=== PATIENT | female | born 1965 | race Caucasian/White ===

== ENCOUNTER 2016-12-17 11:52 | Observation (INO) | payer OTHER ==
--- NOTE | 2016-12-17 12:15 | CPEKG ---
Heart Rate: 70 RR Interval: 857 P-R Interval: 164 QRSD Interval: 86 QT Interval: 420 QTC Interval: 454 P [place]: 79 QRS [place]: 7 T Wave [place]: 56 EKG Severity - NORMAL ECG - EKG Impression: SINUS RHYTHM Electronically Signed By: Oleksandr Infante 17-Dec-2016 12:15:49
--- NOTE | 2016-12-17 12:23 | EDPHY ---
H & P Stated Complaint: mid back pain, epigastric burning, L neck pain started about 45 min ago Time Seen by Provider: 12/17/16 12:23 HPI/ROS: HPI: This is a 51-year-old female who presents with Chief Complaint: Left shoulder/neck pain Location: Left posterior shoulder/left lateral neck Quality: Pain Duration: 1-2 hours Signs and Symptoms: No shortness of breath, no palpitation, no diaphoresis, + chest heaviness, no fatigue, no nausea, no vomiting Timing: Sudden onset Severity: Moderate Context: Patient it was working at [employer] when she had sudden onset of left posterior shoulder radiating into her left neck pain that she describes as pressure and different from other musculoskeletal complaints. She noted some chest heaviness, cardiac awareness at the time. She became put concerned as she knows that women a typically present with chest pain. She has no prior cardiac history. Denies any family cardiac history. Has an allergy to aspirin and does not take daily. She does admit to increased stress at work. Right- hand dominant. No recent heavy lifting/injury. Modifying Factors: No [id number]-[id number] medications tried Comment: ROS: Constitutional: No fever, no chills, no weight loss Eyes: No blurred vision Respiratory: No shortness of breath, no cough Cardiovascular: No chest pain Gastrointestinal: No nausea, no vomiting no diarrhea Genitourinary: No dysuria Extremities: No myalgias Neurologic: No weakness, no numbness Skin: No rashes Hematologic: No bruising, no bleeding Source: Patient Exam Limitations: No limitations - Personal History LMP (Females 10-55): Pre Menstrual Current Tetanus/Diphtheria Vaccine: Unsure Current Tetanus Diphtheria and Acellular Pertussis (TDAP): Unsure - Medical/Surgical History Hx Asthma: No Hx Chronic Respiratory Disease: No Hx Diabetes: No Hx Cardiac Disease: No Hx Renal Disease: No Hx Cirrhosis: No Hx Alcoholism: No Hx HIV/AIDS: No Hx Splenectomy or Spleen Trauma: No Other PMH: hypoglycemia. gastric bypass - Social History Smoking Status: Never smoked - Physical Exam Exam: CONSTITUTIONAL: Pleasant obese white female, awake and alert, no obvious distress HEENT: Atraumatic and normocephalic, PERRL, EOMI. Tympanic membranes clear. Oropharynx clear, no exudate and moist pink mucosa. Airway patent. No lymphadenopathy. No meningismus. Cardiovascular: Normal S1/S2, regular rate, regular rhythm, without murmur rub or gallop. PULMONARY/CHEST: Symmetrical and nontender. Clear to auscultation bilaterally. Good air movement. No accessory muscle usage. ABDOMEN: Soft, nondistended, nontender, no rebound, no guarding, no peritoneal signs, no masses or organomegaly. No CVAT. EXTREMITIES: 2/2 pulses, no deformities, no clubbing, no cyanosis or edema. NEUROLOGICAL: no focal neuro deficits. GCS 15. SKIN: Warm and dry, no erythema. no rash. Good capillary refill. Constitutional: Initial Vital Signs Temperature (C) 36.5 C 12/17/16 12:01 Heart Rate 67 12/17/16 12:01 Respiratory Rate 16 12/17/16 12:01 Blood Pressure 128/79 H 12/17/16 12:01 O2 Sat (%) 98 12/17/16 12:01 O2 Delivery Mode Room Air Allergies/Adverse Reactions: aspirin Allergy (Verified 12/17/16 12:00) erythromycin base Allergy (Verified 12/17/16 12:01) Home Medications: Medication Instructions Recorded NK [No Known Home Meds] 12/17/16 Medical Decision Making - Diagnostics EKG Interpretation: 12 lead EKG: Indication: Chest pain Rhythm: Normal sinus rhythm, rate of 70 beats per minute Joseph: Normal Intervals: Normal QRS: Normal ST segments: Normal INTERPRETATION: Normal EKG The 12 lead EKG was interpreted by myself. Imaging Results: Imaging Impressions Chest X-Ray 12/17/16 12:29 Impression: Normal chest. ED Course/Re-evaluation: Chest x-ray, labs, EKG ordered Unable to give aspirin due to allergy. Initial EKG does not show any acute ischemic changes per my read and first troponin was unremarkable. She is low risk for pulmonary embolism as no hypoxia/tachycardia/risk factors. Chest x-ray my read via PAC shows no opacity/effusion/pneumothorax SILVERIO risk index= 15; low/intermediate risk with a very good story that is concerning for cardiac disease 1400 ED decision to consult for admission for cardiac rule out, serial cardiac biomarkers and risk stratification. Discussed case with attending who agrees. Spoke with hospitalist, Dr. Joshi, who kindly agrees to admit patient for further care. Differential Diagnosis: Chest pain including but not limited to myocardial ischemia, pulmonary embolus, chest wall pain, pleural inflammation and pulmonary infectious causes. - Data Points Laboratory Results: Laboratory Results 12/17/16 12:15 12/17/16 12:15 12/17/16 12/17/16 12:15 12:15 WBC 5.44 10^3/uL 10^3/uL (3.80-9.50) RBC 4.55 10^6/uL 10^6/uL (4.18-5.33) Hgb 13.4 g/dL g/dL (12.6-16.3) Hct 42.2 % % (38.0-47.0) MCV 92.7 fL fL (81.5-99.8) MCH 29.5 pg pg (27.9-34.1) MCHC 31.8 g/dL L g/dL (32.4-36.7) RDW 14.8 % % (11.5-15.2) Plt Count 337 10^3/uL 10^3/uL (150-400) MPV 9.1 fL fL (8.7-11.7) Neut % (Auto) 53.8 % % (39.3-74.2) Lymph % (Auto) 35.1 % % (15.0-45.0) [place] % (Auto) 8.5 % % (4.5-13.0) Eos % (Auto) 1.7 % % (0.6-7.6) Baso % (Auto) 0.7 % % (0.3-1.7) Nucleat RBC Rel Count 0.0 % % (0.0-0.2) Absolute Neuts (auto) 2.93 10^3/uL 10^3/uL (1.70-6.50) Absolute Lymphs (auto) 1.91 10^3/uL 10^3/uL (1.00-3.00) Absolute Monos (auto) 0.46 10^3/uL 10^3/uL (0.30-0.80) Absolute Eos (auto) 0.09 10^3/uL 10^3/uL (0.03-0.40) Absolute Basos (auto) 0.04 10^3/uL 10^3/uL (0.02-0.10) Absolute Nucleated RBC 0.00 10^3/uL 10^3/uL (0-0.01) Immature Gran % 0.2 % % (0.0-1.1) Immature Gran # 0.01 10^3/uL 10^3/uL (0.00-0.10) Sodium 137 mEq/L mEq/L (134-144) Potassium 3.9 mEq/L mEq/L (3.5-5.2) Chloride 102 mEq/L mEq/L (97-110) Carbon Dioxide 22 mEq/l mEq/l (22-31) Anion Gap 13 mEq/L mEq/L (8-16) BUN 13 mg/dL mg/dL (7-23) Creatinine 0.8 mg/dL mg/dL (0.6-1.0) Estimated GFR > 60 Glucose 111 mg/dL H mg/dL (70-100) Calcium 9.5 mg/dL mg/dL (8.5-10.4) Troponin I < 0.012 ng/mL ng/mL (0.000-0.034) Departure - Departure Disposition: [facility] Inpatient Acute Clinical Impression: Chest pain in adult
[2016-12-17 12:34] LABS: % IMMATURE GRANULYOCYTES 0.2 % (0.0-1.1); ABSOLUTE IMMATURE GRANULOCYTES 0.01 10^3/uL (0.00-0.10); ADD DIFF? NO; ADD MORPH? NO; ADD SCAN? NO; ATYPICAL LYMPHOCYTE FLAG 20 (0-99); FRAGMENT RBC FLAG 0 (0-99); HEMATOCRIT 42.2 % (38.0-47.0); HEMOGLOBIN 13.4 g/dL (12.6-16.3); LEFT SHIFT FLG 0 (0-99); LIPEMIA HEMOLYSIS FLAG 80 (0-99); MEAN CELL HEMOGLOBIN 29.5 pg (27.9-34.1); MEAN CELL HEMOGLOBIN CONCENTR. 31.8 g/dL (32.4-36.7); MEAN CELL VOLUME 92.7 fL (81.5-99.8); MEAN PLATELET VOLUME 9.1 fL (8.7-11.7); PLATELET CLUMPS FLAG 0 (0-99); PLATELET COUNT 337 10^3/uL (150-400); RED BLOOD CELL COUNT 4.55 10^6/uL (4.18-5.33); RED CELL DISTRIBUTION WIDTH 14.8 % (11.5-15.2)
[2016-12-17 13:00] LABS: TROPONIN I < 0.012 ng/mL (0.000-0.034)
[2016-12-17 13:50] LABS: ANION GAP 13 mEq/L (8-16); CALCIUM 9.5 mg/dL (8.5-10.4); CARBON DIOXIDE 22 mEq/l (22-31); CHLORIDE 102 mEq/L (97-110); CREATININE 0.8 mg/dL (0.6-1.0); GLOMERULAR FILTRATION RATE > 60; GLUCOSE 111 mg/dL (70-100); POTASSIUM 3.9 mEq/L (3.5-5.2); SODIUM 137 mEq/L (134-144)
[2016-12-17] MEDS ORDERED: traZODone 50 MG TAB PO PRN (14:26)
[2016-12-17] MEDS ORDERED: ONDANSETRON 4 MG/2 ML VIAL IVP PRN (16:13)
[2016-12-17] MEDS ORDERED: ACETAMINOPHEN 325 MG TAB PO PRN (16:13)
[2016-12-17] MEDS ORDERED: ZOLPIDEM TARTRATE 5 MG TAB PO PRN (16:13)
--- NOTE | 2016-12-17 16:33 | PDGENHP ---
History and Physical History and Physical: CC: Chest discomfort HISTORY: This patient was feeling well until around 11 30 this morning when she was at work and started to experience a pressure and heaviness in the left posterior shoulder left neck and anterior chest. This is associated with diaphoresis but no nausea shortness of breath or palpitations. There is no pleuritic component , no cough, no fevers, no leg pain or swelling. She has no recent travel surgery or immobilization or injury. She has no fever symptoms, no cough, no upper respiratory abnormalities, and otherwise has felt fine. She came into the emergency room for assessment. At this point her symptoms have abated but she still has some minor discomfort. ROS: A comprehensive 10 system review revealed no other significant findings PAST MEDICAL HISTORY: Obesity Status post gastric bypass surgery Insomnia FAMILY MEDICAL HISTORY: No history of cardiac or vascular disease Both parents in their 80s had TIAs SOCIAL HISTORY: Smoked briefly in her early 30s but none since then No significant alcohol Works as a banker MEDICATIONS: The patients list has been reconciled by our clinical pharmacist in the EMR. I have reviewed the list and ordered appropriate medicines. PHYSICAL EXAMINATION: Vital Signs: Stable with no fever Contracting Specialist: Sinus rhythm Examination: General: alert, oriented, good mentation, relaxed Skin: warm, dry, good color, no rash HEENT: normal Neck: no mass or jvd Resps: relaxed Lungs: clear breath sounds Heart: regular, no murmur Abdomen: soft, nondistended, nontender, +BS, no mass Upper Extremities: normal Lower Extremities: no edema, warm No Bleeding or bruising Neurologic: normal speech/language, normal turning lathe tender, no focal weakness IV site: looks normal LABORATORY DATA: 1st troponin is normal, otherwise unremarkable chemistry and CBC RADIOLOGY STUDIES: Chest x-ray done in the ER, my personal interpretation images shows normal chest x-ray 12 LEAD EKG: My personal interpretation of the tracing shows sinus rhythm with normal QRS ST and T-waves no ischemic changes ASSESSMENT: -typical anginal symptoms so far has not shown evidence of myocardial infarction or hemodynamic instability; concern for acute coronary syndrome PLANS: Will observe her here over night with repeat troponins EKG cardiac monitoring hemodynamic monitoring etc, and plan on probable treadmill stress test in the morning If she develops instability or other concerning signs will consider change to angiography or other evaluations as indicated
[2016-12-18] MEDS ORDERED: MULTIVITAMINS 1 EACH TAB PO SCH (09:00)
--- NOTE | 2016-12-18 09:10 | CPEKG ---
Heart Rate: 59 RR Interval: 1017 P-R Interval: 164 QRSD Interval: 82 QT Interval: 432 QTC Interval: 428 P [place]: 79 QRS [place]: 23 T Wave [place]: 60 EKG Severity - NORMAL ECG - EKG Impression: SINUS RHYTHM Electronically Signed By: Sabra Mccormack 18-Dec-2016 16:32:00
--- NOTE | 2016-12-18 12:42 | CPR ---
[f rep st] NONINVASIVE CARDIAC PROCEDURE REPORT DATE OF PROCEDURE: 12/18/2016 PROCEDURE: Exercise treadmill stress test. REASON FOR TEST: 1. Indigestion. 2. Chest discomfort radiating into neck and back. RESULTS: Resting EKG shows a regular sinus rhythm with a rate of 79. No ischemic changes. She is asymptomatic at rest just previous to stress testing. EXERCISE PORTION: She was exercised according to the Camilo protocol for a total of 6 minutes and 50 seconds. She reached a MET level of 7.9, peak blood pressure 150/60, peak heart rate 165. At 2 minutes into the stress test, she did have a 3-beat run of ventricular tachycardia. She remained asymptomatic at that time. The remainder of the stress test was uneventful with regular sinus rhythm and no arrhythmias. RECOVERY: She spontaneously recovered with resting blood pressure 142/60, resting heart rate 89. She remained asymptomatic. Due to the 3-beat run of aberrantly conducted tachycardia and her presenting symptoms, it is recommended to proceed with nuclear stress testing. This will be done this afternoon. She may additionally be asked to wear a Holter monitor to gain more information regarding her rhythm if she continues to experience palpitations. This was discussed with Dr. Dinesh Connors and Dr Shawn Kaur. /[id number]/MODL MTDD
--- NOTE | 2016-12-18 15:56 | ASMTCMCOM ---
CM Note CM Note Notes: 12/18/2016 Case Management Note: Reviewed chart, spoke w/RN. Pt is . No Case Management d/c needs identified d/t pt age and activity levels prior to admissions. No therapy evals ordered. Case Management d/c poc: Home independent w/family support when medically stable. Case Management available if needs change. Date Signed: 12/18/2016 03:55 PM Electronically Signed By:Cathleen Daniels RN
[2016-12-18 16:05] VITALS: BP 108/70; PULSE 72; RESP 15; TEMP 97.8; O2SAT 96
--- NOTE | 2016-12-18 17:08 | ASDISCHSUM ---
Discharge Information Plan Status:Home with No Needs Medically Cleared to Leave: Discharge Date:12/18/2016 05:04 PM CM D/C Disposition:Home, Routine, Self-Care ADT D/C Disposition:Home, Routine, Self-Care Projected Discharge Date:12/18/2016 05:04 PM Transportation at D/C:Self Discharge Delay Reason: Follow-Up Date:12/18/2016 05:04 PM Discharge Slot: Final Diagnosis: Placement Information Patient Contact Information Contact Name:JORDEN Relationship: Address:[address] [address] Work Phone: [facility] Phone: [facility]/Zip Code:[place] [address] Email: Financial Information Financial Class:HMO and PPO Plans Primary Plan Desc:[facility] [place] [facility] Primary Plan Number:[id number] Secondary Plan Desc: Secondary Plan Number: Assessment Information [facility] CM Progress Note CM Note CM Note Notes: 12/18/2016 Case Management Note: Reviewed chart, spoke w/RN. Pt is . No Case Management d/c needs identified d/t pt age and activity levels prior to admissions. No therapy evals ordered. Case Management d/c poc: Home independent w/family support when medically stable. Case Management available if needs change. Date Signed: 12/18/2016 03:55 PM Electronically Signed By:Cathleen Daniels RN Intervention Information
--- NOTE | 2016-12-18 19:08 | CPR ---
[f rep st] NONINVASIVE CARDIAC PROCEDURE REPORT DATE OF PROCEDURE: 12/18/2016 TEST PERFORMED: Treadmill nuclear stress test. REASON FOR TEST: Chest discomfort, heartburn, back pain radiating into the neck. RESTING EKG: Shows a regular sinus rhythm with a rate of 85, blood pressure 102/64, oxygen saturatio n 100%. She is asymptomatic. STRESS PORTION: She was exercised according to the Camilo protocol for a total of 6 minutes and 30 se conds. Maximal met level 7.6, maximal heart rate 158, maximal blood pressure 146/60. She was asymptom atic. There were no arrhythmias during the exercise portion. RECOVERY: She spontaneously recovered. Resting blood pressure 102/60, heart rate 90. At this time, s he currently is stable to go for nuclear imaging. /[id number]/MODL
--- NOTE | 2016-12-18 22:02 | GDS ---
[f rep st] DISCHARGE SUMMARY DISCHARGE DIAGNOSES: Include. 1. Neck and jaw pain thought noncardiac in origin. 2. Obesity. 3. History of gastric bypass surgery. 4. Insomnia. 5. Anxiety. HISTORY OF PRESENT ILLNESS: This is a 51-year-old female, who presents with sudden onset of neck and jaw pain associated indigestion. For details of patient's initial presentation, please see the hist ory and physical dated 12/17/2016. CONSULTATIVE SERVICES: Include cardiology. PROCEDURES: Patient underwent treadmill myocardial perfusion scanning which showed no inducible isch emia or dysrhythmia. HOSPITAL COURSE BY ISSUE: 1. Neck and jaw pain. The patient was admitted, had serial troponins and telemetry monitoring which were normal. Was sent for treadmill testing and had a short run of what looked like possible ventri cular tachycardia. Image was reviewed by Cardiology and the decision was made to repeat treadmill st ress testing with nuclear imaging afterwards. Conclusion of nuclear imaging showed no inducible isch emia and repeat treadmilling without any unusual dysrhythmia. The patient is being discharged to [facility] with recommendations to follow at [facility] for any recurrent jaw or chest symptoms. 2. Anxiety/stress. Patient does endorse marked stressful sources in her life currently. Did talk a lot about stress management and its potential association with her symptoms. The patient will follo w with her outpatient primary care provider for ongoing assistance with stress management. MEDICATIONS AT THE TIME OF TRANSFER: Please reference med rec printed on 12/18/2016. FOLLOWUP APPOINTMENTS: Include with [facility] if needed for recurrent symptoms, and with her [facility] care provider in the next 2-4 weeks for post disposition followup. PENDING STUDIES: At the time of this dictation are none. /[id number]/MODL
== END 2016-12-18 17:04 | disposition home or self-care (01) ==
LOC: F2W 15:39
PROVIDERS: ADMIT Internal Medicine; ATTEND Internal Medicine
DX: M54.2 Cervicalgia (principal); R68.84 Jaw pain; E66.9 Obesity, unspecified; G47.00 Insomnia, unspecified; F41.9 Anxiety disorder, unspecified; Z98.84 Bariatric surgery status; Z68.25 Body mass index [BMI] 25.0-25.9, adult
CPT/HCPCS: 71020; 78452; 93005; 93017; A9500; G0378